=== PATIENT | male | born 1965 | race Caucasian/White ===

== ENCOUNTER 2023-12-21 08:28 | Emergency (ER) | payer MEDICARE, MEDICAID, OTHER ==
[~2023-12-21] VITALS: Ht 177.8 cm; Wt 139.8 kg
[~2023-12-21 08:28] MED LIST: ALLO100T PO; ATOR40TA PO; ESCI5TAB PO; FURO80TA87 PO; HYDR-3972 PO; INSU100I31 SQ; LEVO88TA2 PO; LISI40TA13 PO; METO50TA17 PO; NITR0.4T48 SL; POTA-207 PO; PREG50CA PO; RIVA20TA PO; SPIR25TA PO
[2023-12-21 08:32] VITALS: TEMP 97.8
[2023-12-21] MEDS: HYDROmorphone 1 mg/ml syringe IV ONE ×3 (08:50→21:15)
[2023-12-21 09:44] LABS: BASOPHILS # (AUTO) 0.1 X10'3 (0-0.2); MEAN CORPUSCULAR VOLUME 106.2 FL (78-98); MONOCYTES # (AUTO) 0.8 X10'3 (0-0.9); NEUTROPHILS # (AUTO) 5.2 X10'3 (1.8-7.7); WHITE BLOOD COUNT 7.1 X10'3 (4.5-11.0)
[2023-12-21 09:45] LABS: BASOPHILS % (AUTO) 0.8 % (0-1); EOSINOPHILS % (AUTO) 0.7 % (0-6); HEMATOCRIT 39.4 % (42.0-52.0); HEMOGLOBIN 12.9 g/dl (14.0-17.9); LYMPHOCYTES % (AUTO) 14.6 % (21-51); MEAN CORPUSCULAR HEMOGLOBIN 34.9 PG (27.0-31.0); MEAN CORPUSCULAR HGB CONC 32.8 g/dL (33.0-36.5); MEAN PLATELET VOLUME 10.7 FL (7.4-10.4); MONOCYTES % (AUTO) 11.1 % (2-12); NEUTROPHILS % (AUTO) 72.8 % (42-75); PLATELET COUNT 152 X10'3 (140-440); RED BLOOD COUNT 3.71 X10'6 (4.70-6.10); RED CELL DISTRIBUTION WIDTH 20.4 % (11.5-14.5)
[2023-12-21] MEDS: HYDROmorphone 1 mg/ml syringe IM ONE (09:53)
[2023-12-21 10:35] LABS: ALBUMIN 3.7 G/DL (3.4-5.0); ANION GAP 17 (8-16); BLOOD UREA NITROGEN 47 MG/DL (7-18); BUN/CREATININE RATIO 18.5 (10.0-20.0); CALCIUM 9.1 MG/DL (8.5-10.1); CHLORIDE 93 MMOL/L (99-107); CREATININE 2.54 MG/DL (0.60-1.10); GLUCOSE 112 MG/DL (70-104); MAGNESIUM 1.4 MG/DL (1.5-2.4); POTASSIUM 3.8 MMOL/L (3.5-5.1); SODIUM 135 MMOL/L (135-145); TOTAL CARBON DIOXIDE 24.6 MMOL/L (24-32); eCRCL 32 ML/MIN; eGFR 26 ML/MIN
[2023-12-21] MEDS: normal saline 1000ML IV soln IVB ONE ×2 (15:28→17:29)
[2023-12-21] MEDS: VANCOmycin 2,000MG in NS 500ml IV soln IV ONE (15:30)
[2023-12-21] MEDS: cefepime 2g/NS 100ml ADVANTAGE 100 ML IV ONE (16:44)
[2023-12-21 16:48] VITALS: BP 112/74
[2023-12-21] MEDS: normal saline 1000ml 1,000 ML IV ONE (17:44)
[2023-12-21 21:25] VITALS: PULSE 123; RESP 22; O2SAT 94
== END 2023-12-21 21:38 | disposition admitted as inpatient to this hospital (09) ==
LOC: ER 08:28
DX: A41.9 Sepsis, unspecified organism (principal); R07.89 Other chest pain; R55 Syncope and collapse; R60.1 Generalized edema; I50.9 Heart failure, unspecified; R42 Dizziness and giddiness; R09.02 Hypoxemia; Z79.899 Other long term (current) drug therapy; Z79.1 Long term (current) use of non-steroidal anti-inflammatories (NSAID)
CPT/HCPCS: 36415; 71045; 74176; 80048; 83605; 83735; 84145; 84484; 85025; 87040; 93005; 96365; 96367; 96372; 96375; 96376; 99291; 99292; J0692; J1170; J3370; J7030; J7040